=== PATIENT | female | born 1970 | race American Indian/Alaskan Native ===

== ENCOUNTER 2021-10-24 16:07 | Emergency (ER) | payer BC ==
[2021-10-24] MEDS ORDERED: IPRATROPIUM 0.02% NEBU 2.5 ML IH ONE (16:29)
[2021-10-24] MEDS ORDERED: ALBUTEROL 8.5 GM MDI INHALATION IH ONE (16:29)
--- NOTE | 2021-10-24 16:53 | XRay Report ---
CHEST 1 VIEW INDICATION: Dyspnea. COMPARISON: None FINDINGS: SUPPORT DEVICES: None. HEART: Within normal limits. LUNGS/PLEURA: No acute air space or interstitial disease. ADDITIONAL FINDINGS: None. IMPRESSION: 1. No acute findings. Signer Name: Christian Howell MD Signed: 10/24/2021 4:49 PM Workstation Name: [id number]
[2021-10-24] MEDS ORDERED: ALBUTEROL 2.5 MG/3 ML NEBU IH ONE (17:00)
[2021-10-24 18:01] LABS: Hematocrit 36.4 % (30.3-42.9); Hemoglobin 11.5 gm/dl (10.1-14.3); Mean Corpuscular HGB Conc 32 % (30-34); Mean Corpuscular Volume 81 fl (79-97); Platelet Count 328 K/mm3 (140-440); Red Blood Count 4.51 M/mm3 (3.65-5.03); Red Cell Distribution Width 17.4 % (13.2-15.2)
[2021-10-24 18:16] LABS: INR 0.98 (0.87-1.13)
[2021-10-24 18:20] LABS: Alanine Aminotransferase 30 units/L (7-56); Albumin 3.9 g/dL (3.9-5); Blood Urea Nitrogen 11 mg/dL (7-17); Calcium 9.1 mg/dL (8.4-10.2); Hemolysis Index 4
[2021-10-24 18:25] LABS: BUN/Creatinine Ratio 16; Creatine Kinase MB < 1.0 ng/mL (0.0-4.0)
--- NOTE | 2021-10-24 18:35 | Emergency Department Report ---
ED Shortness of Breath HPI - General Chief Complaint: Dyspnea/Respdistress Stated Complaint: physician referral Time Seen by Provider: 10/24/21 16:26 Source: EMS Mode of arrival: Stretcher Limitations: No Limitations - History of Present Illness Initial Comments: Pt sent from urgent care with SOB since yesterday, pt was placed on 2L NC 02. MD Complaint: shortness of breath -: Gradual, days(s) Consistency: constant Worsens With: lying flat, exertion Known History Of: recurrent pnemonia - Related Data Previous Rx's Medication Instructions Recorded Last Taken Type Albuterol Mdi (or & Nicu Only) 2 puff IH QID PRN #8.5 gram 10/24/21 Unknown Rx [ProAir HFA Inhaler] Azithromycin [Zithromax Z-LOKI] 0 mg PO DAILY #6 tab 10/24/21 Unknown Rx Benzonatate [Tessalon Perles] 100 mg PO Q8HR #30 cap 10/24/21 Unknown Rx Prednisone [predniSONE 10 mg 10 mg PO .TAPER #1 10/24/21 Unknown Rx (6-Day Pack, 21 Tabs)] Allergies Allergy/AdvReac Type Severity Reaction Status Date / Time No Known Allergies Allergy Verified 10/24/21 16:12 ED Review of Systems ROS: Stated complaint: physician referral Other details as noted in HPI Constitutional: denies: chills, fever Eyes: denies: eye pain, eye discharge, vision change ENT: denies: ear pain, throat pain Respiratory: denies: cough, shortness of breath, wheezing Cardiovascular: denies: chest pain, palpitations Endocrine: no symptoms reported Gastrointestinal: denies: abdominal pain, nausea, diarrhea Genitourinary: denies: urgency, dysuria, discharge Musculoskeletal: denies: back pain, joint swelling, arthralgia Skin: denies: rash, lesions Neurological: denies: headache, weakness, paresthesias Psychiatric: denies: anxiety, depression Hematological/Lymphatic: denies: easy bleeding, easy bruising ED Past Medical Hx - Past Medical History Previous Medical History?: Yes Hx Hypertension: No Hx CVA: No - Medications Home Medications: Home Medications Medication Instructions Recorded Confirmed Last Taken Type Albuterol Mdi (or & Nicu Only) 2 puff IH QID PRN #8.5 gram 10/24/21 Unknown Rx [ProAir HFA Inhaler] Azithromycin [Zithromax Z-LOKI] 0 mg PO DAILY #6 tab 10/24/21 Unknown Rx Benzonatate [Tessalon Perles] 100 mg PO Q8HR #30 cap 10/24/21 Unknown Rx Prednisone [predniSONE 10 mg 10 mg PO .TAPER #1 10/24/21 Unknown Rx (6-Day Pack, 21 Tabs)] ED Physical Exam - General Limitations: No Limitations General appearance: alert, in no apparent distress - Head Head exam: Present: atraumatic, normocephalic - Eye Eye exam: Present: normal appearance - ENT ENT exam: Present: mucous membranes moist - Neck Neck exam: Present: normal inspection - Respiratory Respiratory exam: Present: normal lung sounds bilaterally. Absent: respiratory distress - Cardiovascular Cardiovascular Exam: Present: normal rhythm, tachycardia. Absent: systolic murmur, diastolic murmur, rubs, gallop - GI/Abdominal GI/Abdominal exam: Present: soft, normal bowel sounds - Extremities Exam Extremities exam: Present: normal inspection - Back Exam Back exam: Present: normal inspection - Neurological Exam Neurological exam: Present: alert, oriented X3 - Psychiatric Psychiatric exam: Present: normal affect, normal mood - Skin Skin exam: Present: warm, dry, intact, normal color. Absent: rash ED Course Vital Signs 10/24/21 10/24/21 16:11 21:16 Temperature 98.7 F 98 F Pulse Rate 114 H 88 Respiratory 16 18 Rate Blood Pressure 138/78 Blood Pressure 104/84 [Right] O2 Sat by Pulse 100 100 Oximetry - Reevaluation(s) Reevaluation #1: 10/24/21 18:35 work up shwoed clear x ray , dier is elevated , will get CTA ED Medical Decision Making - Lab Data Result diagrams: 10/24/21 16:57 10/24/21 16:57 Critical care attestation.: If time is entered above; I have spent that time in minutes in the direct care of this critically ill patient, excluding procedure time. ED Disposition Clinical Impression: Bronchitis Disposition: 01 HOME / SELF CARE / HOMELESS Is pt being admited?: No Does the pt Need Aspirin: No Condition: Stable Instructions: Upper Respiratory Infection, Adult, [id number], Chronic Bronchitis (ED) Prescriptions: Prednisone [predniSONE 10 mg (6-Day Pack, 21 Tabs)] 10 mg PO .TAPER #1 Albuterol Mdi (or & Nicu Only) [ProAir HFA Inhaler] 2 puff IH QID PRN #8.5 gram PRN Reason: Shortness Of Breath Benzonatate [Tessalon Perles] 100 mg PO Q8HR #30 cap Azithromycin [Zithromax Z-LOKI] 0 mg PO DAILY #6 tab Referrals: KASIA MAHAJAN, TIMBER BUCKER [Primary Care Provider] - 3-5 Days
[2021-10-24 19:00] LABS: Band Neutrophils # (Manual) 0.5 K/mm3; Basophils % (Manual) 0 % (0.0-1.8); Eosinophils % (Manual) 0 % (0.0-4.3); Hypochromasia 1+; Total Cells Counted 100
[2021-10-24 19:01] LABS: Platelet Estimate Consistent w Auto
--- NOTE | 2021-10-24 19:55 | Cat Scan Report ---
CTA CHEST WITH IV CONTRAST INDICATION: SOB. TECHNIQUE: Axial CT images were obtained through the chest after injection of an unspecified amount and type of IV contrast. 3 plane MIP reconstructions were produced. All CT scans at this location are performed u sing CT dose reduction for ALARA by means of automated exposure control. COMPARISON: One view of the chest performed today. FINDINGS: PULMONARY ARTERIES: There is suboptimal opacification of the pulmonary arteries without evidence of c entral pulmonary emboli. THORACIC AORTA: No significant abnormality. CORONARY ARTERY CALCIFICATION: Absent -- None. HEART: No significant abnormality. LYMPH NODES:No significant adenopathy. TRACHEA AND BRONCHI:No significant abnormality. LUNGS: No suspicious consolidation, nodule or mass. No pneumothorax or pleural effusion. ADDITIONAL FINDINGS: None. UPPER ABDOMEN: There is a 4 cm left adrenal adenoma. No other significant abnormality. BONES: No significant osseous abnormality. IMPRESSION: 1. No CT evidence for pulmonary embolism. 2. No acute findings. Signer Name: Rich Callahan MD Signed: 10/24/2021 7:51 PM Workstation Name: [id number]
[2021-10-24 21:24] VITALS: BP 138/78
--- NOTE | 2021-10-25 09:31 | Electrocardiograph Report ---
[facility] Test Date: 2021-10-24 Test Time: 18:32:29 Pat Name: RAUL ARAMBULA Department: Room: Gender: F Optical Advisor: DAVID : [id number] Requested By: BEATRIZ MCINTYRE Order Number: [id number] Reading MD: Enrico Irizarry Measurements Intervals Turner Rate: 104 P: 60 FL: 160 QRS: 17 QRSD: 73 T: 31 QT: 344 QTc: 452 Interpretive Statements Sinus tachycardia No previous ECG available for comparison Electronically Signed On 10-25-2021 9:30:48 EST by Enrico Irizarry
== END 2021-10-24 21:26 | disposition home or self-care (01) ==
LOC: ED 16:07
DX: J40 Bronchitis, not specified as acute or chronic (principal); Z79.899 Other long term (current) drug therapy
CPT/HCPCS: 36415; 71045; 71275; 80053; 82140; 82550; 82553; 83690; 84484; 85007; 85025; 85379; 85610; 93005; 93010; 99285; Q9967